=== PATIENT | male | born 1985 | race African-American/Black ===

== ENCOUNTER 2022-08-04 14:56 | Observation (INO) ==
[2022-08-04 15:40] LABS: Basophils % 0.4 % (0.0-0.8); Eosinophils % 0.3 % (0.00-10.9); Hematocrit 41.2 VOL% (42.0-52.0); Hemoglobin 13.1 GM/DL (14.0-18.0); Immature Granulocytes % 0.1 %; Immature Granulocytes Absolute 0.01 #; Lymphocytes # 3.6 10*3/uL (1.4-4.0); Lymphocytes % 53.7 % (21.2-54.2); Mean Corpuscular HGB Conc 31.8 GM/DL (32-36); Mean Platelet Volume 12.3 FL (9.6-12.0); Monocytes # 0.6 10*3/uL (0.11-0.8); Monocytes % 8.2 % (1.7-12.7); Neutrophils % 37.3 % (38.7-73.9); Platelet Count 169 T/CUMM (130-400); Red Blood Count 4.68 MC/CUMM (3.8-5.5); Red Cell Distribution Width 13.7 % (9.3-17.3); White Blood Count 6.7 T/CUMM (4-12)
[2022-08-04 15:50] LABS: PT Patient Result 10.6 SECS (10.1-12.1); Partial Thromboplastin Time 28.5 SECS (23.7-32.9)
[2022-08-04 15:52] LABS: Albumin 4.3 G/DL (3.4-5.0); Bilirubin,Total 0.6 MG/DL (0.20-1.00); Calcium 9.6 MG/DL (8.5-10.1); Osmolality,Calculated 276.8 MOS/KG (273-304); Potassium 4.2 MMOL/L (3.5-5.1); Total Protein 8.1 G/DL (6.4-8.2)
[2022-08-04 16:21] LABS: Mucus,Urine Few /LPF (Occasional)
[2022-08-04 16:22] LABS: Bilirubin,Urine Negative (Negative); Blood, Urine Negative (Negative); Glucose,Urine (UA) Negative (Negative); Ketones,Urine 15 mg/dL (Negative); Nitrite,Urine Negative (Negative); Protein,Urine Negative (Negative); Urine Appearance Clear (Clear); Urine Color Yellow (Yellow); Urine Specific Gravity 1.025 (1.001-1.035)
[2022-08-04 16:27] LABS: Lymphocytes 58 % (20-55); Platelet Estimate Adequate; Total Cells Counted 100
[2022-08-04 16:37] LABS: Barbiturates Screen,Urine Negative (Negative); Benzodiazepines Screen,Urine Negative (Negative); Cannabinoid Screen,Urine Positive (Negative); Opiate Screen,Urine Negative (Negative); Phencyclidine Screen,Urine Negative (Negative)
[2022-08-04] MEDS ORDERED: ONDANSETRON 4 MG/2 ML VIAL IV PRN (17:02)
[2022-08-04] MEDS ORDERED: LABETALOL 20 MG/4 ML SYRINGE IV PRN (17:06)
[2022-08-04] MEDS ORDERED: KETOROLAC 10 MG TABLET PO PRN (17:12)
[2022-08-04 17:37] LABS: Risk Ratio 4.16; VLDL Cholesterol 13.2 MG/DL
[2022-08-04] MEDS: SODIUM CHLORIDE 0.9% 1,000 ML IV SCH ×2 (17:46→19:00)
[2022-08-04] MEDS: INSULIN LISPRO 100 UNIT/ML SUBCUT SCH (20:34)
[2022-08-04] MEDS ORDERED: OLANZapine 5 MG TABLET PO SCH (21:00)
[2022-08-04] MEDS ORDERED: ATORVASTATIN 40 MG TABLET PO SCH (21:00)
[2022-08-04] MEDS ORDERED: CITALOPRAM 20 MG TABLET PO SCH (21:00)
[2022-08-05] MEDS: SODIUM CHLORIDE 0.9% 1,000 ML IV SCH ×3 (03:02→14:38)
[2022-08-05] MEDS ORDERED: NICOTINE 14 MG/24 HR PATCH TRANSDERM SCH (09:00)
[2022-08-05] MEDS ORDERED: CLOPIDOGREL 75 MG TABLET PO SCH (09:00)
[2022-08-05] MEDS: INSULIN LISPRO 100 UNIT/ML SUBCUT SCH ×2 (10:12→14:39)
[2022-08-05 11:37] VITALS: BP 146/93
== END 2022-08-05 14:18 ==
LOC: N.EDINP 14:56 → N.ED 14:56 → SUATTDRO 17:02 → N.3W 17:57
PROVIDERS: ADMIT Internal Medicine; ATTEND Emergency Medicine